=== PATIENT | male | born 1955 | race Caucasian/White ===

== ENCOUNTER 2017-08-16 11:23 | Emergency (ER) | payer OTHER ==
[~2017-08-16] VITALS: Ht 177.8 cm; Wt 95.3 kg
[2017-08-16] MEDS ORDERED: PNEU16DI2 (11:52)
[2017-08-16] MEDS ORDERED: FLAGYL500MG (11:52)
[2017-08-16] MEDS ORDERED: CIPROFLOXACIN500 M1 (11:52)
[2017-08-16] MEDS ORDERED: EFFEXOR XR75 MG (11:53)
[2017-08-16] MEDS ORDERED: CLONAZEPAM1 MG (11:54)
[2017-08-16] MEDS ORDERED: ATORVASTATIN CA20 MG (11:54)
[2017-08-16] MEDS ORDERED: VALSARTAN-HCTZ1 EAC3 (11:55)
[2017-08-16] MEDS ORDERED: ZANTAC150 MG PO (18:34)
[2017-08-16] MEDS ORDERED: CIPRO500 MG PO (18:34)
[2017-08-16] MEDS ORDERED: FLAGYL500MG PO (18:34)
== END 2017-08-16 18:44 | disposition home or self-care (01) ==
LOC: ER 11:23 → EDSEX 11:25 → ER 11:25
DX: K57.32 Diverticulitis of large intestine without perforation or abscess without bleeding (principal); K80.80 Other cholelithiasis without obstruction; E78.4 Other hyperlipidemia; R10.32 Left lower quadrant pain

== ENCOUNTER 2018-11-15 08:40 | Outpatient (CLI) | payer OTHER ==
[~2018-11-15 08:40] MED LIST: ATORVASTATIN CA20 MG; CIPRO500 MG PO; CIPROFLOXACIN500 M1; CLONAZEPAM1 MG; EFFEXOR XR75 MG; FLAGYL500MG; FLAGYL500MG PO; PNEU16DI2; VALSARTAN-HCTZ1 EAC3; ZANTAC150 MG PO
== END 2018-11-15 17:00 | disposition home or self-care (01) ==
LOC: RAD 08:40
DX: M25.011 Hemarthrosis, right shoulder (principal)

== ENCOUNTER 2020-04-19 09:34 | Outpatient (CLI) | payer OTHER | END 2020-04-19 11:07 | disposition home or self-care (01) | LOC: MRI 09:34 | PROVIDERS: ATTEND Physical Medicine & Rehabilitation | DX: M54.5 Low back pain (principal) | CPT/HCPCS: 72148 ==

== ENCOUNTER 2020-11-02 10:33 | Outpatient (CLI) | payer OTHER | END 2020-11-02 10:35 | disposition home or self-care (01) | LOC: SONOGRAMA 10:33 | PROVIDERS: ATTEND Urology | DX: N28.89 Other specified disorders of kidney and ureter (principal); R31.1 Benign essential microscopic hematuria; N40.1 Benign prostatic hyperplasia with lower urinary tract symptoms; R33.8 Other retention of urine ==